=== PATIENT | male | born 1980 | race African-American/Black ===

== ENCOUNTER 2017-07-15 14:34 | Outpatient (CLI) | payer BC ==
--- NOTE | 2017-07-15 17:09 | ULT ---
ULTRASOUND WITH DOPPLER DUPLEX VENOUS RIGHT UPPER EXTREMITY: 07/15/17 HISTORY: 37-year-old male with right upper extremity swelling. Dr. Ying reported the acute, occlusive deep vein thrombosis of the right upper extremity by telephone to Dr. Ibarra at 3:15 p.m. on 07/15/17. Dr. Ibarra has instructed to have the patient go home, and he will call in prescription for anticoag ulation therapy. TECHNIQUE: Perdue scale, color flow, and spectral analysis of major veins of the right upper extremity. Compressio n applied to all veins except the subclavian. FINDINGS: There is a right internal jugular catheter (reportedly a vascular access port), around which the inte rnal jugular vein is completely collapsed and occluded. There is expansion (indicating acute thrombos is), noncompressibility, and lack of blood flow, contiguously throughout the right axillary vein and brachial vein, down to the distal arm, just proximal to the elbow. The subclavian vein is also expand ed and completely occluded. There is blood flow in the right ulnar, radial, cephalic, and basilic, ve ins. IMPRESSION: 1. Complete, acute thrombosis and occlusion of the right subclavian, axillary, and brachial vein s. 2. Complete occlusion of the right internal jugular vein around a vascular access port catheter. Code CR POS: RAY
== END 2017-07-15 14:35 | disposition home or self-care (01) ==
LOC: ULT 14:34
PROVIDERS: ATTEND Surgery
DX: M79.89 Other specified soft tissue disorders (principal); C20 Malignant neoplasm of rectum; I82.B11 Acute embolism and thrombosis of right subclavian vein; I82.A11 Acute embolism and thrombosis of right axillary vein; I82.621 Acute embolism and thrombosis of deep veins of right upper extremity; I82.C11 Acute embolism and thrombosis of right internal jugular vein